=== PATIENT | female | born 1960 | race Caucasian/White ===

== ENCOUNTER 2018-06-05 00:09 | Emergency (ER) | payer BC ==
--- NOTE | 2018-06-05 00:18 | PDOC ---
History of Present Illness - General Chief Complaint: Cold Symptoms Stated Complaint: CHEST CONGESTION Time Seen by Provider: 06/05/18 00:13 History Source: Patient Exam Limitations: No Limitations - History of Present Illness Initial Comments: 06/05/18 00:23 This is a 58-year-old female who comes in complaining of one week of cough congestion and chills. Patient otherwise has no significant medical history other than hypertension. Patient denies having taken her temperature but just said she has had intermittent chills 1 week. Patient said cough is nonproductive. Patients temperature here in the emergency room was 99.3. PAST MEDICAL HISTORY: no significant history PAST SURGICAL HISTORY: no significant history FAMILY HISTORY: no pertinant history SOCIAL HISTORY: Pt lives with family and is employed. MEDICATIONS: reviewed ALLERGIES: As per nursing notes ROS General: No fevers or chills, no weakness, no weight loss HEENT: No change in vision. No sore throat,. No ear pain CardioVascular: No chest pain or shortness of breath Respiratory:No cough, or wheezing. Gastrointestinal: no nausea, vomiting, diarrhea or constipation, No rectal bleeding Genitourinary: No dysuria, hematuria, or frequency Musculoskeletal: . No joint pain or swelling Neurologic: No headache, vertigo, dizziness or loss of consciousness Psychiatric: nor depression Skin: No rashes or easy bruising Endocrine: no increased thirst or abnormal weight change Allergic: no skin or latex allergy All other systems reviewed and normal Exam: General: Well-nourished well-developed individual, no acute distress HEENT: Throat: Normal, tonsils normal, no erythema or exudate Neck: Supple, no meningeal signs, no lymphadenopathy Eyes::Pupils equal reactive and round, extraocular motion intact Chest: Nontender to palpation Cardiac: S1-S2 normal, regular rate and rhythm, no murmurs rubs or gallops Respiratory: Lungs clear to auscultation bilateral Abdomen: Soft, nondistended, normal bowel sounds, there is no tenderness on palpation diffusely Extremities: Warm, dry, no cyanosis, clubbing, or edema Skin: No rashes Neuro: Alert and oriented x3, CN II - XII intact, nonfocal exam with normal strength, Assessment plan: This is a 58-year-old female comes in complaining of one week of intermittent cough congestion. Patient's chest x-ray is negative. Patient's vitals were normal. Patient was afebrile. Patient most likely has a viral upper respiratory tract type infection. Patient given Tessalon Perles for the cough and discharged home. 06/05/18 00:28 06/05/18 00:37 Past History - Past Medical History Allergies/Adverse Reactions: Allergies Allergy/AdvReac Type Severity Reaction Status Date / Time Penicillins Allergy Verified 06/05/18 00:11 Home Medications: Ambulatory Orders Benzonatate [Tessalon Pearls -] 100 mg PO TID #21 capsule 06/05/18 Desloratadine 5 mg PO DAILY 06/05/18 Levocetirizine Dihydrochloride [Xyzal] 5 mg PO DAILY 06/05/18 Melatonin 3 mg PO HS 06/05/18 *DC/Admit/Observation/Transfer Diagnosis at time of Disposition: Upper respiratory tract infection Qualifiers: URI type: unspecified URI Qualified Code(s): J06.9 - Acute upper respiratory infection, unspecified - Discharge Dispostion Disposition: HOME Condition at time of disposition: Stable - Referrals Referrals: ON STAFF,NOT [Primary Care Provider] - - Patient Instructions Printed Discharge Instructions: DI for Viral Upper Respiratory Infection -- Adult Additional Instructions: Tylenol as needed for fevers. Take Tessalon Perles one 3 times a day for cough. Return to the emergency department immediately with ANY new, persistent or worsening symptoms. Continue any medications as previously prescribed by your physician. You should follow up with your primary doctor as soon as possible regarding today's emergency department visit. . Please make sure your doctor reviews the results of your emergency evaluation. Thank you for coming to the Emergency Department today for your care. It was a pleasure to see you today. Please note that your evaluation is INCOMPLETE until you follow-up with your doctor. - Post Discharge Activity
[2018-06-05 00:25] VITALS: BP 107/74; PULSE 96; TEMP 99.3; BMI 25.0
== END 2018-06-05 00:54 | disposition home or self-care (01) ==
LOC: FER 00:09
DX: J06.9 Acute upper respiratory infection, unspecified (principal)
CPT/HCPCS: 71046-TC-FY; 99281-25

== ENCOUNTER 2022-05-29 20:35 | Emergency (ER) | payer BC ==
[2022-05-29 20:47] VITALS: BP 117/88; PULSE 73; RESP 16; TEMP 98.4; BMI 23.3
[2022-05-29] MEDS ORDERED: ACETAMINOPHEN 325 MG TABLET (FP) PO ONE (20:57)
[2022-05-29] MEDS ORDERED: BACITRACIN 15 GM TUBE TOPICAL OINTMENT TP ONE (20:57)
[2022-05-29] MEDS ORDERED: ACETAMINOPHEN 325 MG TABLET (FP) ONE (21:02)
[2022-05-29] MEDS ORDERED: LIDOCAINE PATCH REMOVAL MC SCH (22:00)
[2022-05-29] MEDS ORDERED: LIDOCAINE 5% TOPICAL PATCH TP ONE (22:43)
[2022-05-29] MEDS ORDERED: LIDOCAINE 5% TOPICAL PATCH ONE (22:51)
== END 2022-05-29 23:21 | disposition home or self-care (01) ==
LOC: FER 20:35
DX: S06.0X0A Concussion without loss of consciousness, initial encounter (principal); W01.0XXA Fall on same level from slipping, tripping and stumbling without subsequent striking against object, initial encounter
CPT/HCPCS: 70450-TC; 72125-TC; 99284-25

== ENCOUNTER 2022-10-11 06:04 | Emergency (ER) | payer BC ==
[2022-10-11 06:20] VITALS: TEMP 97.4; BMI 22.8
[2022-10-11] MEDS ORDERED: SODIUM CHLORIDE 1,000 ML IV ONE (06:35)
[2022-10-11] MEDS ORDERED: ONDANSETRON 4 MG/2 ML VIAL IVPB ONE (06:35)
[2022-10-11] MEDS ORDERED: KETOROLAC TROMETHAMINE 30 MG/1 ML VIAL IVPUSH ONE (06:35)
[2022-10-11] MEDS ORDERED: ONDANSETRON 4 MG/2 ML VIAL ONE (06:39)
[2022-10-11] MEDS ORDERED: KETOROLAC TROMETHAMINE 30 MG/1 ML VIAL ONE (06:39)
[2022-10-11 07:48] VITALS: BP 125/74; PULSE 56; RESP 16
== END 2022-10-11 07:54 | disposition home or self-care (01) ==
LOC: FER 06:04
PROC: 3E0337Z Introduction of Electrolytic and Water Balance Substance into Peripheral Vein, Percutaneous Approach (ICD-10-PCS; principal; 2022-10-11)
DX: G90.A Postural orthostatic tachycardia syndrome [POTS] (principal); R42 Dizziness and giddiness; R11.0 Nausea
CPT/HCPCS: 99284-25